=== PATIENT | male | born 2005 | race Hispanic/Latino ===

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

== ENCOUNTER 2024-11-02 15:04 | Emergency (ER) | payer SELFPAY | END 2024-11-02 17:05 | disposition home or self-care (01) | LOC: ERS 15:04 | DX: M54.2 Cervicalgia (principal); M25.511 Pain in right shoulder; V49.50XA Passenger injured in collision with unspecified motor vehicles in traffic accident, initial encounter | CPT/HCPCS: 70450; 72125; 93005 ==